=== PATIENT | male | born 1985 | race Caucasian/White ===

== ENCOUNTER 2017-07-09 16:28 | Emergency (ER) | payer BC ==
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
[2017-07-09 18:33] VITALS: BP 119/71
== END 2017-07-09 17:20 | disposition home or self-care (01) ==
LOC: MW.ED 16:28
DX: Z51.89 Encounter for other specified aftercare (principal)
CPT/HCPCS: 99282

== ENCOUNTER 2017-10-13 11:09 | Emergency (ER) | payer BC ==
--- NOTE | 2017-10-13 11:27 | EDM.PDOC ---
ED HPI GENERAL MEDICAL PROBLEM - General Stated Complaint: cough Time Seen by Provider: 10/13/17 11:25 Source of Information: Reports: Patient History Limitations: Reports: No Limitations - History of Present Illness INITIAL COMMENTS - FREE TEXT/NARRATIVE: HISTORY AND PHYSICAL: History of present illness: Patient is a 32-year-old male who presents to the emergency room with complaints of cough, fever, body aches since 10/07/2017. States that he initially started with a cough and fever which led him to miss 3 days of work, stating "I laid in bed all 3 days and just couldn't move". During that time he had a subjective fever, (did not take his temperature with a thermometer), body aches, diarrhea and a productive cough. Reports he slowly started to feel better - and currently is only dealing with the cough which is now nonproductive. He returned to work today, and states he started to feel sick again. Patient has a past history of smoking, quit about 4 years ago. Currently uses chewing tobacco for the past 11 years. Has not received the [id number] influenza vaccine Review of systems: As per history of present illness and below otherwise all systems reviewed and negative. Past medical history: As per history of present illness and as reviewed below otherwise noncontributory. Surgical history: As per history of present illness and as reviewed below otherwise noncontributory. Social history: No reported history of drug or alcohol abuse. Family history: As per history of present illness and as reviewed below otherwise noncontributory. Physical exam: Gen.: Well-developed and well-nourished 32-year-old male. Appears nontoxic and in no acute distress. Alert and oriented. HEENT: Atraumatic, normocephalic, pupils reactive, negative for conjunctival pallor or scleral icterus, mucous membranes moist, throat clear, neck supple, nontender, trachea midline. Lungs: Clear to auscultation with slightly diminished breath sounds to bilateral posterior bases, breath sounds equal bilaterally, chest nontender. Breathes easy and even. Able to speak in full sentences without shortness of breath. Heart: S1S2, regular rate and rhythm Abdomen: Soft, nondistended, nontender. Negative for masses or hepatosplenomegaly. Negative for costovertebral tenderness. Pelvis: Stable nontender. Genitourinary: Deferred. Rectal: Deferred. Extremities: Atraumatic, moves all extremities per self without difficulty, full range of motion. Neurovascular unremarkable. Neuro: Awake, alert, oriented. Cranial nerves II through XII unremarkable. Cerebellum unremarkable. Motor and sensory unremarkable throughout. Exam nonfocal. Influenza swab is negative for both A&B. Chest x-ray appears unremarkable. Due to the length of patient's symptoms and history of smoking I will prescribe the patient Tessalon Perles and Z-Héctor. Discussed with patient the need for follow- up with his primary care provider. Patient is agreeable to plan of care and voiced understanding. Denies any further questions at this time. Diagnostics: Influenza swab, chest x-ray Therapeutics: [] Impression: Bronchitis Plan: 1. Please take the Tessalon Perles one tab up to 3 times daily as needed for cough. The Z-Héctor has been prescribed for you, please take as directed. Supportive care such as Tylenol and/or ibuprofen for fever and body aches. Insure you're drinking plenty of fluids to remain hydrated. 2. Follow-up with your primary care provider in the next 1-2 days. Return to the ED as needed and as discussed. Definitive disposition and diagnosis as appropriate pending reevaluation and review of above. Duration: Day(s): chest Pain Score (Numeric/FACES): 8 - Related Data Allergies Allergy/AdvReac Type Severity Reaction Status Date / Time hydrocodone Allergy Rash Verified 10/13/17 11:25 phenytoin Allergy Hives Verified 10/13/17 11:25 tramadol [From Ultram] Allergy Seizure Verified 10/13/17 11:25 Home Meds: Home Meds QUEtiapine [SEROquel] 25 mg PO BEDTIME PRN 02/04/15 [History] Past Medical History HEENT History: Reports: None Cardiovascular History: Reports: None Respiratory History: Reports: Bronchitis, Recurrent Gastrointestinal History: Reports: None Genitourinary History: Reports: None Other Musculoskeletal History: left shoulder pain Neurological History: Reports: Seizure Other Neuro History: 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, 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 Psychiatric History: Reports: Anxiety Endocrine/Metabolic History: Reports: None Hematologic History: Reports: None Immunologic History: Reports: None Oncologic (Cancer) History: Reports: None Dermatologic History: Reports: None - Infectious Disease History Infectious Disease History: Reports: Chicken Pox - Past Surgical History Head Surgeries/Procedures: Reports: None Musculoskeletal Surgical History: Reports: Other (See Below) Social & Family History - Family History Family Medical History: Noncontributory - Tobacco Use Smoking Status *Q: Never Smoker Years of Tobacco use: 8 Packs/Tins Daily: 0.5 Used Tobacco, but Quit: No Second Hand Smoke Exposure: No - Caffeine Use Caffeine Use: Reports: Coffee, Energy Drinks, Soda, Tea - Alcohol Use Days Per Week of Alcohol Use: 7 Number of Drinks Per Day: 5 Total Drinks Per Week: 35 - Recreational Drug Use Recreational Drug Use: No Drug Use in Last 12 Months: No ED ROS GENERAL - Review of Systems Review Of Systems: ROS reveals no pertinent complaints other than HPI. ED EXAM, GENERAL - Physical Exam Exam: See Below (See dictation) Course - Vital Signs Last Recorded V/S: Last Vital Signs Temp 97.4 F 10/13/17 12:43 Pulse 79 10/13/17 12:43 Resp 16 10/13/17 12:43 BP 115/77 10/13/17 12:43 Pulse Ox 98 10/13/17 12:43 Departure - Departure Time of Disposition: 12:52 Disposition: Home, Self-Care 01 Condition: Good Clinical Impression: Bronchitis - Discharge Information Referrals: Perry Acuna MD [Primary Care Provider] - Additional Instructions: My general discharge The following information is given to patients seen in the emergency department who are being discharged to home. This information is to outline your options for follow-up care. We provide all patients seen in our emergency department with a follow-up referral. The need for follow-up, as well as the timing and circumstances, are variable depending upon the specifics of your emergency department visit. If you don't have a primary care physician on staff, we will provide you with a referral. We always advise you to contact your personal physician following an emergency department visit to inform them of the circumstance of the visit and for follow-up with them and/or the need for any referrals to a consulting specialist. The emergency department will also refer you to a specialist when appropriate. This referral assures that you have the opportunity for follow-up care with a specialist. All of these measure are taken in an effort to provide you with optimal care, which includes your follow-up. Under all circumstances we always encourage you to contact your private physician who remains a resource for coordinating your care. When calling for follow-up care, please make the office aware that this follow-up is from your recent emergency room visit. If for any reason you are refused follow-up, please contact the [facility] Emergency Department at and asked to speak to the emergency department charge nurse. [facility] [address] [place] [id number] 1. Please take the Tessalon Perles one tab up to 3 times daily as needed for cough. The Z-Héctor has been prescribed for you, please take as directed. Supportive care such as Tylenol and/or ibuprofen for fever and body aches. Insure you're drinking plenty of fluids to remain hydrated. 2. Follow-up with your primary care provider in the next 1-2 days. Return to the ED as needed and as discussed.
[2017-10-13 12:44] VITALS: BP 115/77
--- NOTE | 2017-10-13 12:47 | CR ---
EXAMINATION: Two-view chest (PA and Lateral views). HISTORY: Shortness of breath. Comparison: 09/04/2015. FINDINGS: The trachea is midline. The cardiomediastinal silhouette is within normal limits. No pulmonary infilt rates, effusions or pneumothorax. Osseous structures appear unremarkable. IMPRESSION: No acute cardiopulmonary process.
== END 2017-10-13 13:00 | disposition home or self-care (01) ==
LOC: MW.ED 11:09
DX: J40 Bronchitis, not specified as acute or chronic (principal); Z88.5 Allergy status to narcotic agent; Z88.8 Allergy status to other drugs, medicaments and biological substances
CPT/HCPCS: 71020; 71020-26; 87804; 99283

== ENCOUNTER 2017-10-19 09:28 | Emergency (ER) | payer BC ==
[2017-10-19] MEDS ORDERED: Iopamidol 755 MG/ML 500 ML Multipack Bottle IVPUSH STA (10:42)
--- NOTE | 2017-10-19 11:52 | CT ---
EXAMINATION: CT chest with contrast HISTORY: Blood tinged sputum COMPARISON: Radiographs dated 10/13/2017 TECHNIQUE: Axial CT images obtained through the chest following the administration of 75 mL of Isovue -370. Coronal and sagittal reconstructions obtained. FINDINGS: The lungs are clear without focal consolidation. No pleural effusion or pneumothorax. The h eart is normal in size without a pericardial effusion. No mediastinal, axillary or hilar lymphadenopa thy. The central airways are clear. The thoracic aorta is normal in caliber. The main pulmonary arter ies are patent. The visualized images of the upper abdomen appear normal. No suspicious osseous abnormalities. IMPRESSION: Unremarkable CT chest.
--- NOTE | 2017-10-19 12:53 | EDM.PDOC ---
ED HPI GENERAL MEDICAL PROBLEM - General Chief Complaint: Respiratory Problem Stated Complaint: COUGHING UP BLOOD Time Seen by Provider: 10/19/17 12:52 Source of Information: Reports: Patient - History of Present Illness INITIAL COMMENTS - FREE TEXT/NARRATIVE: HISTORY AND PHYSICAL: History of present illness: [Patient presents with blood-tinged sputum he has been seen twice over the last 2 weeks for cough once here and through walk-in clinic he has had 2 chest x- rays which are negative No current fever nausea vomiting chills sweats no chest pain shortness breath headache dizziness palpitation about a urine symptoms ] Review of systems: As per history of present illness and below otherwise all systems reviewed and negative. Past medical history: As per history of present illness and as reviewed below otherwise noncontributory. Surgical history: As per history of present illness and as reviewed below otherwise noncontributory. Social history: No reported history of drug or alcohol abuse. Family history: As per history of present illness and as reviewed below otherwise noncontributory. Physical exam: HEENT: Atraumatic, normocephalic, pupils reactive, negative for conjunctival pallor or scleral icterus, mucous membranes moist, throat clear, neck supple, nontender, trachea midline. Lungs: Clear to auscultation, breath sounds equal bilaterally, chest nontender. Heart: S1S2, regular, negative for clicks, rubs, or JVD. Abdomen: Soft, nondistended, nontender. Negative for masses or hepatosplenomegaly. Negative for costovertebral tenderness. Pelvis: Stable nontender. Genitourinary: Deferred. Rectal: Deferred. Extremities: Atraumatic, negative for cords or calf pain. Neurovascular unremarkable. Neuro: Awake, alert, oriented. Cranial nerves II through XII unremarkable. Cerebellum unremarkable. Motor and sensory unremarkable throughout. Exam nonfocal. Diagnostics: []TB Chest CT with contrast Therapeutics: []Patient just completed Z-Héctor 250 mg dosing today Impression: []Acute bronchitis Definitive disposition and diagnosis as appropriate pending reevaluation and review of above. - Related Data Allergies Allergy/AdvReac Type Severity Reaction Status Date / Time hydrocodone Allergy Rash Verified 10/19/17 09:38 phenytoin Allergy Hives Verified 10/19/17 09:38 tramadol [From Ultram] Allergy Seizure Verified 10/19/17 09:38 Home Meds: Home Meds QUEtiapine [SEROquel] 25 mg PO BEDTIME PRN 02/04/15 [History] Past Medical History - Past Health History Medical/Surgical History: Denies Medical/Surgical History HEENT History: Reports: None Cardiovascular History: Reports: None Respiratory History: Reports: Bronchitis, Recurrent Gastrointestinal History: Reports: None Genitourinary History: Reports: None Other Musculoskeletal History: left shoulder pain Neurological History: Reports: Seizure Other Neuro History: 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, 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 Psychiatric History: Reports: Anxiety Endocrine/Metabolic History: Reports: None Hematologic History: Reports: None Immunologic History: Reports: None Oncologic (Cancer) History: Reports: None Dermatologic History: Reports: None - Infectious Disease History Infectious Disease History: Reports: Chicken Pox - Past Surgical History Head Surgeries/Procedures: Reports: None Musculoskeletal Surgical History: Reports: Other (See Below) Social & Family History - Family History Family Medical History: Noncontributory - Tobacco Use Smoking Status *Q: Heavy Tobacco Smoker Years of Tobacco use: 10 Packs/Tins Daily: 0.1 Used Tobacco, but Quit: No Second Hand Smoke Exposure: No - Caffeine Use Caffeine Use: Reports: Coffee, Energy Drinks, Soda, Tea - Alcohol Use Days Per Week of Alcohol Use: 7 Number of Drinks Per Day: 4 Total Drinks Per Week: 28 - Recreational Drug Use Recreational Drug Use: No Drug Use in Last 12 Months: No ED ROS GENERAL - Review of Systems Review Of Systems: ROS reveals no pertinent complaints other than HPI. ED EXAM, GENERAL - Physical Exam Exam: See Below Course - Vital Signs Last Recorded V/S: Last Vital Signs Temp 98.1 F 10/19/17 09:38 Pulse 88 10/19/17 09:38 Resp 18 10/19/17 09:38 BP 132/78 10/19/17 09:38 Pulse Ox 98 10/19/17 09:38 - Orders/Labs/Meds Orders: Active Orders 24 hr Category Date Time Status CULTURE SPUTUM + SMEAR [RM] Stat Lab 10/19/17 12:46 Ordered QUANTIFERON TB GOLD [REF] Stat Lab 10/19/17 10:02 Received Labs: Laboratory Tests 10/19/17 Range/Units 10:02 WBC 4.68 (4.0-11.0) K/uL RBC 5.38 (4.50-5.90) M/uL Hgb 16.5 (13.0-17.0) g/dL Hct 45.1 (38.0-50.0) % MCV 83.8 (80.0-98.0) fL MCH 30.7 (27.0-32.0) pg MCHC 36.6 (31.0-37.0) g/dL RDW Std Deviation 37.4 (28.0-62.0) fl RDW Coeff of Tanja 12 (11.0-15.0) % Plt Count 235 (150-400) K/uL MPV 9.40 (7.40-12.00) fL Neut % (Auto) 43.6 L (48.0-80.0) % Lymph % (Auto) 42.1 H (16.0-40.0) % Whiteside % (Auto) 12.6 (0.0-15.0) % Eos % (Auto) 1.3 (0.0-7.0) % Baso % (Auto) 0.4 (0.0-1.5) % Neut # (Auto) 2.0 (1.4-5.7) K/uL Lymph # (Auto) 2.0 (0.6-2.4) K/uL Whiteside # (Auto) 0.6 (0.0-0.8) K/uL Eos # (Auto) 0.1 (0.0-0.7) K/uL Baso # (Auto) 0.0 (0.0-0.1) K/uL Nucleated RBC % 0.0 /100WBC Nucleated RBCs # 0 K/uL Meds: Medications Discontinued Medications Generic Name Dose Route Start Last Admin Trade Name Freq PRN Reason Stop Dose Admin Iopamidol 75 ml 10/19/17 10:42 10/19/17 10:48 Isovue Multipack-370 (76%) IVPUSH 10/19/17 10:43 75 ml ONETIME STA Administration Departure - Departure Time of Disposition: 12:52 Disposition: Home, Self-Care 01 Condition: Good Clinical Impression: Bronchitis - Discharge Information Referrals: Perry Acuna MD [Primary Care Provider] - Forms: ED Department Discharge Additional Instructions: Continue current medication Return if symptoms persist or worsen Follow-up with primary care in 2 weeks sooner as needed [facility] [address] [place] [address] [facility] [address] [place] [address] The following information is given to patients seen in the emergency department who are being discharged to home. This information is to outline your options for follow-up care. We provide all patients seen in our emergency department with a follow-up referral. The need for follow-up, as well as the timing and circumstances, are variable depending upon the specifics of your emergency department visit. If you don't have a primary care physician on staff, we will provide you with a referral. We always advise you to contact your personal physician following an emergency department visit to inform them of the circumstance of the visit and for follow-up with them and/or the need for any referrals to a consulting specialist. The emergency department will also refer you to a specialist when appropriate. This referral assures that you have the opportunity for follow-up care with a specialist. All of these measure are taken in an effort to provide you with optimal care, which includes your follow-up. Under all circumstances we always encourage you to contact your private physician who remains a resource for coordinating your care. When calling for follow-up care, please make the office aware that this follow-up is from your recent emergency room visit. If for any reason you are refused follow-up, please contact the [facility] emergency department at and asked to speak to the emergency department charge nurse. - My Orders Last 24 Hours: My Active Orders 10/19/17 10:02 QUANTIFERON TB GOLD [REF] Stat 10/19/17 12:46 CULTURE SPUTUM + SMEAR [RM] Stat - Assessment/Plan Last 24 Hours: My Active Orders 10/19/17 10:02 QUANTIFERON TB GOLD [REF] Stat 10/19/17 12:46 CULTURE SPUTUM + SMEAR [RM] Stat
[2017-10-19 12:59] VITALS: BP 111/78
== END 2017-10-19 12:58 | disposition home or self-care (01) ==
LOC: MW.ED 09:28
DX: J20.9 Acute bronchitis, unspecified (principal); F17.210 Nicotine dependence, cigarettes, uncomplicated; Z88.5 Allergy status to narcotic agent
CPT/HCPCS: 71260; 85025; 86480; 87070; 87205; 99284; Q9967; 36415; 99283

== ENCOUNTER 2017-10-28 04:45 | Emergency (ER) | payer BC ==
[2017-10-28] MEDS ORDERED: methylPREDNISolone Sodium Succinate 125 MG/2 ML SDV ONE (04:54)
[2017-10-28] MEDS ORDERED: diphenhydrAMINE 50 MG/ML SDV ONE (04:54)
[2017-10-28] MEDS ORDERED: EPINEPHrine 1 MG/ML SDV ONE (04:55)
[2017-10-28] MEDS ORDERED: EPINEPHrine 1 MG/ML SDV IM ONE (05:03)
[2017-10-28] MEDS ORDERED: diphenhydrAMINE 50 MG/ML SDV IVPUSH ONE (05:03)
[2017-10-28] MEDS ORDERED: methylPREDNISolone Sodium Succinate 125 MG/2 ML SDV IVPUSH ONE (05:03)
--- NOTE | 2017-10-28 05:14 | EDM.PDOC ---
ED HPI GENERAL MEDICAL PROBLEM - General Chief Complaint: Allergic Reaction Stated Complaint: RASH Time Seen by Provider: 10/28/17 04:53 - History of Present Illness INITIAL COMMENTS - FREE TEXT/NARRATIVE: HISTORY AND PHYSICAL: History of present illness: Patient 32-year-old male presents with a concern of rash that started tonight this is pruritic and involves his total body it is in the form of hives he denies tongue or lip swelling denies shortness of breath dysphagia or dysphonia Review of systems: As per history of present illness and below otherwise all systems reviewed and negative. Past medical history: As per history of present illness and as reviewed below otherwise noncontributory. Surgical history: As per history of present illness and as reviewed below otherwise noncontributory. Social history: No reported history of drug or alcohol abuse. Family history: As per history of present illness and as reviewed below otherwise noncontributory. Physical exam: HEENT: Atraumatic, normocephalic, pupils reactive, negative for conjunctival pallor or scleral icterus, mucous membranes moist, throat clear, neck supple, nontender, trachea midline. Lungs: Clear to auscultation, breath sounds equal bilaterally, chest nontender. Heart: S1S2, regular, negative for clicks, rubs, or JVD. Abdomen: Soft, nondistended, nontender. Negative for masses or hepatosplenomegaly. Negative for costovertebral tenderness. Pelvis: Stable nontender. Genitourinary: Deferred. Rectal: Deferred. Extremities: Atraumatic, negative for cords or calf pain. Neurovascular unremarkable. Neuro: Awake, alert, oriented. Cranial nerves II through XII unremarkable. Cerebellum unremarkable. Motor and sensory unremarkable throughout. Exam nonfocal. Skin: Patient has a somewhat diffuse urticarial type rash Diagnostics: None Therapeutics: Epi 0.3 I am Benadryl 50 IM Solu-Medrol 125 IM Impression: #1 urticaria Definitive disposition and diagnosis as appropriate pending reevaluation and review of above. - Related Data Allergies Allergy/AdvReac Type Severity Reaction Status Date / Time hydrocodone Allergy Rash Verified 10/28/17 04:51 phenytoin Allergy Hives Verified 10/28/17 04:51 tramadol [From Ultram] Allergy Seizure Verified 10/28/17 04:51 Home Meds: Home Meds QUEtiapine [SEROquel] 25 mg PO BEDTIME PRN 02/04/15 [History] Past Medical History - Past Health History Medical/Surgical History: Denies Medical/Surgical History HEENT History: Reports: None Cardiovascular History: Reports: None Respiratory History: Reports: Bronchitis, Recurrent Gastrointestinal History: Reports: None Genitourinary History: Reports: None Other Musculoskeletal History: left shoulder pain Neurological History: Reports: Seizure Other Neuro History: 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, 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 Psychiatric History: Reports: Anxiety Endocrine/Metabolic History: Reports: None Hematologic History: Reports: None Immunologic History: Reports: None Oncologic (Cancer) History: Reports: None Dermatologic History: Reports: None - Infectious Disease History Infectious Disease History: Reports: None - Past Surgical History Head Surgeries/Procedures: Reports: None Musculoskeletal Surgical History: Reports: Other (See Below) Social & Family History - Family History Family Medical History: Noncontributory - Tobacco Use Smoking Status *Q: Current Every Day Smoker Years of Tobacco use: 10 Packs/Tins Daily: 1 Used Tobacco, but Quit: No Second Hand Smoke Exposure: No - Caffeine Use Caffeine Use: Reports: Coffee, Energy Drinks, Soda, Tea - Alcohol Use Days Per Week of Alcohol Use: 7 Number of Drinks Per Day: 4 Total Drinks Per Week: 28 - Recreational Drug Use Recreational Drug Use: No Drug Use in Last 12 Months: No ED ROS ALLERGIC REACTION - Review of Systems Review Of Systems: ROS reveals no pertinent complaints other than HPI. ED EXAM GENERAL NO PERIP PULSE - Physical Exam Exam: See Below (See dictation) Course - Vital Signs Last Recorded V/S: Last Vital Signs Temp 36.6 C 10/28/17 04:51 Pulse 97 10/28/17 04:51 Resp 18 10/28/17 04:51 BP 141/74 H 10/28/17 04:51 Pulse Ox 99 10/28/17 04:51 - Orders/Labs/Meds Meds: Medications Discontinued Medications Generic Name Dose Route Start Last Admin Trade Name Mary PRN Reason Stop Dose Admin Diphenhydramine HCl Confirm 10/28/17 04:54 Benadryl Administered 10/28/17 04:55 Dose 50 mg .ROUTE .STK-MED ONE Diphenhydramine HCl 50 mg 10/28/17 05:03 10/28/17 05:00 Benadryl IVPUSH 10/28/17 05:04 50 mg ONETIME ONE Administration Epinephrine HCl Confirm 10/28/17 04:55 Adrenalin Administered 10/28/17 04:56 Dose 1 mg .ROUTE .STK-MED ONE Epinephrine HCl 0.3 mg 10/28/17 05:03 10/28/17 05:06 Adrenalin IM 10/28/17 05:04 0.3 mg ONETIME ONE Administration Methylprednisolone Sodium Succinate Confirm 10/28/17 04:54 Solu-Medrol Administered 10/28/17 04:55 Dose 125 mg .ROUTE .STK-MED ONE Methylprednisolone Sodium Succinate 125 mg 10/28/17 05:03 10/28/17 05:00 Solu-Medrol IVPUSH 10/28/17 05:04 125 mg ONETIME ONE Administration Departure - Departure Time of Disposition: 05:12 Disposition: Home, Self-Care 01 Condition: Good Clinical Impression: Urticaria - Discharge Information Referrals: Perry Acuna MD [Primary Care Provider] - Additional Instructions: The following information is given to patients seen in the emergency department who are being discharged to home. This information is to outline your options for follow-up care. We provide all patients seen in our emergency department with a follow-up referral. The need for follow-up, as well as the timing and circumstances, are variable depending upon the specifics of your emergency department visit. If you don't have a primary care physician on staff, we will provide you with a referral. We always advise you to contact your personal physician following an emergency department visit to inform them of the circumstance of the visit and for follow-up with them and/or the need for any referrals to a consulting specialist. The emergency department will also refer you to a specialist when appropriate. This referral assures that you have the opportunity for followup care with a specialist. All of these measure are taken in an effort to provide you with optimal care, which includes your followup. Under all circumstances we always encourage you to contact your private physician who remains a resource for coordinating your care. When calling for followup care, please make the office aware that this follow-up is from your recent emergency room visit. If for any reason you are refused follow-up, please contact the [facility] emergency department at and asked to speak to the emergency department charge nurse. Medrol Benadryl as prescribed follow-up primary medical doctor 1-2 days return as needed as discussed
[2017-10-28 06:08] VITALS: BP 109/65
== END 2017-10-28 06:05 | disposition home or self-care (01) ==
LOC: MW.ED 04:45
DX: L50.9 Urticaria, unspecified (principal); F17.210 Nicotine dependence, cigarettes, uncomplicated; Z88.5 Allergy status to narcotic agent; Z88.8 Allergy status to other drugs, medicaments and biological substances
CPT/HCPCS: 96374; 96375; 99283; J0171; J1200; J2930